=== PATIENT | female | born 1945 | race Caucasian/White ===

== ENCOUNTER 2019-09-28 14:33 | Emergency (ER) | payer MEDICARE, OTHER, SELFPAY ==
[2019-09-28 14:35] VITALS: BP 129/66; PULSE 73; RESP 18; TEMP 36.4; O2SAT 99; BMI 24.4
--- NOTE | 2019-09-28 14:39 | ED.GENADULT ---
HPI - General Adult General Chief complaint: Extremity Injury, Lower Stated complaint: L Hip Fracture s/p trip and fall Time Seen by Provider: 09/28/19 14:39 Source: patient Mode of arrival: EMS Limitations: no limitations History of Present Illness HPI narrative: 73-year-old female here for evaluation of left hip pain. Patient states she tripped over rug. Landed on her left knee and then on her left hip. Did not hit her head. No loss of conscious. Not on anticoagulation. No prior injury to left hip. Unable to walk on it since the event. Did receive fentanyl by EMS EN route. Related Data Home Medications Medication Instructions Recorded Confirmed amitriptyline 50 mg BID 09/28/19 09/28/19 levothyroxine 150 mcg DAILY 09/28/19 09/28/19 ofloxacin 1 drp BID 09/28/19 09/28/19 prednisolone acetate 1 drp BID 09/28/19 09/28/19 Allergies Allergy/AdvReac Type Severity Reaction Status Date / Time ciprofloxacin Allergy Abdominal Verified 09/28/19 15:05 Pain codeine Allergy ITCHING Verified 09/28/19 15:05 doxycycline Allergy ITCHING Verified 09/28/19 15:05 epinephrine Allergy Shakiness Verified 09/28/19 15:05 fenofibrate Allergy ITCHING Verified 09/28/19 15:05 lidocaine Allergy Shakiness Verified 09/28/19 15:05 oxycodone Allergy Hallucinati Verified 09/28/19 15:05 ng [id number] Reductase Allergy Headache Verified 09/28/19 15:05 Inhibitor Sulfa (Sulfonamide Allergy ITCHING Verified 09/28/19 15:05 Antibiotics) morphine AdvReac ITCHING Verified 09/28/19 15:05 Review of Systems Constitutional Constitutional: Denies headache(s) ENT Ears, Nose, Mouth, and Throat: Denies headache(s) Cardiovascular Cardiovascular: Denies chest pain and Denies dyspnea Respiratory Respiratory: Denies dyspnea Gastrointestinal Gastrointestinal: Denies abdominal pain Musculoskeletal Comments: Left hip pain Integumentary/Breasts Skin/Breast: Denies lesions and Denies rash Neurologic Neurologic: Denies behavioral changes and Denies headache(s) Psychiatric Psychiatric: Denies behavioral changes Hematologic/Lymphatic Hematologic/Lymphatic: Denies easy bleeding and Denies easy bruising Patient History Medical History Hypothyroid (Acute) Social History Smoking Status: Current every day smoker Exam Initial Vital Signs Initial Vital Signs: Vital Signs Temperature 97.6 F 09/28/19 14:35 Pulse Rate 73 09/28/19 14:35 Respiratory Rate 18 09/28/19 14:35 Blood Pressure 129/66 09/28/19 14:35 Pulse Oximetry 99 09/28/19 14:35 Const General: cooperative and well developed Limitations: mental status not altered [facility] Head: normal to inspection and normocephalic Resp Effort & Inspection: normal respiratory effort Auscultation: clear to auscultation bilaterally Cardio Rate: regular rate Rhythm: regular rhythm Back/Spine/Pelvis Cervical Spine: No cervical spinal tenderness Skin Lesions: no lesions Rashes: no rashes Neuro Other: Alert oriented x3. GCS 15. Sensation intact to light touch left lower extremity. Extrem Other: Left ankle left foot left knee unremarkable. Tenderness to palpation lateral aspect of left hip. Right hip unremarkable. No other orthopedic injuries found on exam Psych Appearance: grossly normal and well kempt Course Orders Ordered: ED Orders 09/28/19 14:25 Complete Blood Count AUTO DIFF Stat Comprehensive Metabolic Panel Stat Lipase Stat Type and Screen Stat 09/28/19 14:42 XR hip w pel if done LT 2V Stat Sodium Chloride (Normal Saline 0.9%) 1,000 mls @ 125 mls/hr IV CONT COLTEN Discontinued Medications Morphine Sulfate (Morphine) 4 mg IV NOW ONE Stop: 09/28/19 14:48 Last Admin: 09/28/19 14:57 Dose: 4 mg Documented by: NORM Vital Signs Vital signs: Vital Signs - 8 hr 09/28/19 14:35 09/28/19 15:00 09/28/19 16:05 Temperature 97.6 F 97.6 F Pulse Rate 73 73 84 Respiratory Rate 18 18 14 Blood Pressure 129/66 129/66 Blood Pressure [123/72] 123/72 Pulse Oximetry 99 99 98 Medical Decision Making Lab Data Lab results reviewed: Yes I reviewed the patient's lab results. Result diagrams: 09/28/19 14:25 09/28/19 14:25 Labs: Lab Results 09/28/19 09/28/19 09/28/19 Range/Units 14:25 14:25 14:25 WBC 6.2 (4.5-11.0) X10^3/uL RBC 4.34 (4.0-5.2) X10^6/uL Hgb 14.5 (12.0-16.0) g/dL Hct 42.3 (36-46) % MCV 97.4 (80-100) fL MCH 33.5 (26-34) PG MCHC 34.4 (30-36) % RDW 13.3 (11.6-14.8) % Plt Count 233 (150-400) X10^3/uL Neut % (Auto) 53.7 (50-75) % Lymph % (Auto) 35.3 (25-40) % [place] % (Auto) 8.1 (3-14) % Eos % (Auto) 2.3 (2-4) % Baso % (Auto) 0.6 (0-2) % Neut # (Auto) 3300 (3911-5148) /uL Lymph # (Auto) 2200 (4104-5554) /uL [place] # (Auto) 500 (0-900) /uL Eos # (Auto) 100 (0-450) /uL Baso # (Auto) 0 (0-100) /uL Sodium 134 L (137-145) mmol/L Potassium 4.3 (3.4-5.1) mmol/L Chloride 99 (98-107) mmol/L Carbon Dioxide 28 (22-32) mmol/L BUN 21 H (7-17) mg/dL Creatinine 0.80 (0.52-1.04) mg/dL Estimated GFR > 60.0 (>60) mL/min BUN/Creatinine Ratio 26.3 H (6-22) Glucose 133 H (80-110) mg/dL Calcium 9.9 (8.4-10.2) mg/dL Total Bilirubin 0.6 (0.2-1.3) mg/dL AST 27 (14-36) IU/L ALT 15 (<35) IU/L Alkaline Phosphatase 79 (38-126) U/L Total Protein 8.2 (6.3-8.2) g/dL Albumin 4.5 (3.5-5.0) g/dL Globulin 3.7 (1.7-4.1) g/dL Albumin/Globulin Ratio 1.2 (1.0-2.8) Lipase 91 (23-300) U/L Blood Type O Positive Antibody Screen Negative Imaging Data Extremity x-ray #1: Radiologist's Impression: [address] [address] XRay Report Signed Patient: Candi Juan EMR#: [id number] : 4Acct:[id number] Age/Sex: 73 / FDate of Service: 09/28/19 Loc: ED Accession Number: [id number] Procedure: XR hip w pel if done LT 2V Ordering Provider: Emile Graf D.O. PROCEDURE: XR HIP W PEL IF DONE LT 2V INDICATIONS: Fall. L hip pain w/external rotation. TECHNIQUE: AP pelvis with lateral view(s) of the left hip(s). COMPARISON: None. FINDINGS: Bones: There is a comminuted, moderately displaced intertrochanteric fracture of the left proximal femur. No dislocation can be seen. No fractures of the bones of the pelvis are detected. Age-appropriate bony degenerative changes are seen, including involving the lower lumbar spine. Soft tissues: The visualized bowel gas pattern is normal. No suspicious soft tissue calcifications. IMPRESSION: Intertrochanteric left proximal femur fracture. Dictated by: Janak Ragsdale M.D. on 09/28/2019 at 14:31 Approved by: Janak Ragsdale M.D. on 09/28/2019 at 14:33 MDM Narrative Medical decision making narrative: Mechanical fall. Left-sided intertrochanteric hip fracture. Pain medication provided. Labs provided. Patient requested transfer to [facility]. She states that she has ?bad memories ?with regard to [facility]. Discussed the case with Dr. Mauricio with Orthopedics who accepts the patient. He has that the medicine service accept the patient. Patient is stable for transfer. Dr. Mcdaniels boiling house oiler at [facility] accepts patient. Discharge Plan Departure Patient Disposition: [facility] Clinical Impression: Closed intertrochanteric fracture of left hip Qualifiers: Encounter type: initial encounter Fracture alignment: displaced Qualified Code(s): S72.142A - Displaced intertrochanteric fracture of left femur, initial encounter for closed fracture Prescriptions: No Action ofloxacin 0.3 % drops 1 drp BID RF: 0 amitriptyline 50 mg tablet 50 mg BID RF: 0 prednisolone acetate 1 % drops,suspension 1 drp BID RF: 0 levothyroxine 150 mcg tablet 150 mcg DAILY RF: 0 Referrals: Bakari Hook MD [Primary Care Provider] -
--- NOTE | 2019-09-28 14:42 | DI.RAD.S_ITS ---
PROCEDURE: XR HIP W PEL IF DONE LT 2V INDICATIONS: Fall. L hip pain w/external rotation. TECHNIQUE: AP pelvis with lateral view(s) of the left hip(s). COMPARISON: None. FINDINGS: Bones: There is a comminuted, moderately displaced intertrochanteric fracture of the left proximal femur. No dislocation can be seen. No fractures of the bones of the pelvis are detected. Age-appropriate bony degenerative changes are seen, including involving the lower lumbar spine. Soft tissues: The visualized bowel gas pattern is normal. No suspicious soft tissue calcifications. IMPRESSION: Intertrochanteric left proximal femur fracture. Dictated by: Janak Ragsdale M.D. on 09/28/2019 at 14:31 Approved by: Janak Ragsdale M.D. on 09/28/2019 at 14:33
--- NOTE | 2019-09-28 14:43 | PC.NURSE ---
cut patients pants, and evan plummer with pt permission. Removed 2 shirts and bra. Placed in bag at bedside. pt placed in gown and provided with warm blankets.
[2019-09-28 14:54] LABS: Add Manual Diff / Slide Review NO; Basophils Absolute Auto 0 /uL (0-100); Basophils Percent Auto 0.6 % (0-2); Eosinophils Absolute Auto 100 /uL (0-450); Eosinophils Percent Auto 2.3 % (2-4); Hematocrit 42.3 % (36-46); Hemoglobin 14.5 g/dL (12.0-16.0); Lymphocytes Absolute Auto 2200 /uL (1100-4500); Lymphocytes Percent Auto 35.3 % (25-40); Mean Corpuscular HGB Conc 34.4 % (30-36); Mean Corpuscular Hemoglobin 33.5 PG (26-34); Mean Corpuscular Volume 97.4 fL (80-100); Monocytes Absolute Auto 500 /uL (0-900); Monocytes Percent Auto 8.1 % (3-14); Neutrophils Absolute Auto 3300 /uL (1500-7000); Neutrophils Percent Auto 53.7 % (50-75); Platelet Count 233 X10^3/uL (150-400); Red Blood Cell Count 4.34 X10^6/uL (4.0-5.2); Red Cell Distribution Width 13.3 % (11.6-14.8); White Blood Cell Count 6.2 X10^3/uL (4.5-11.0)
[2019-09-28] MEDS: MORPHINE 4 MG/ML INJ IV ×3 (14:57→18:35)
[2019-09-28 15:00] VITALS: BP 129/66; PULSE 73; RESP 18; TEMP 36.4; O2SAT 99; BMI 24.4
[2019-09-28 15:04] LABS: Alanine Aminotransferase 15 IU/L (<35); Albumin 4.5 g/dL (3.5-5.0); Albumin Globulin Ratio 1.2 (1.0-2.8); Alkaline Phosphatase 79 U/L (38-126); Aspartate Aminotransferase 27 IU/L (14-36); BUN Creatinine Ratio 26.3 (6-22); Bilirubin Total 0.6 mg/dL (0.2-1.3); Blood Urea Nitrogen 21 mg/dL (7-17); Calcium 9.9 mg/dL (8.4-10.2); Carbon Dioxide 28 mmol/L (22-32); Chloride 99 mmol/L (98-107); Estimated Glomerular Filt Rate > 60.0 mL/min (>60); Globulin 3.7 g/dL (1.7-4.1); Glucose 133 mg/dL (80-110); HEMOLYSIS 25 (0-50); Lipase 91 U/L (23-300); Potassium 4.3 mmol/L (3.4-5.1); Sodium 134 mmol/L (137-145); Total Protein 8.2 g/dL (6.3-8.2)
[2019-09-28 16:05] VITALS: BP 123/72; PULSE 84; RESP 14; O2SAT 98
--- NOTE | 2019-09-28 16:36 | PC.NURSE ---
Placed by DULCE Hooper.
[2019-09-28] MEDS: SODIUM CHLORIDE 0.9% 1,000 ML 125 ML IV (16:56)
[2019-09-28 17:08] VITALS: BP 122/62; PULSE 87; O2SAT 96
[2019-09-28 18:12] VITALS: BP 125/67; PULSE 85; O2SAT 98
== END 2019-09-28 18:51 | disposition short-term general hospital (02) ==
PROVIDERS: Emergency Provider Emergency Medicine; Family Provider Family Medicine; PCP Family Medicine
DX: S72.142A Displaced intertrochanteric fracture of left femur, initial encounter for closed fracture (principal); W01.0XXA Fall on same level from slipping, tripping and stumbling without subsequent striking against object, initial encounter
CPT/HCPCS: 36415; 51701; 73502; 80053; 83690; 85025; 86850; 86900; 86901; 96374; 96376; 99284; 99285; J2270

== ENCOUNTER → 2019-10-05 13:16 | Outpatient (CLI) | payer MEDICARE, OTHER, SELFPAY | PROVIDERS: Family Provider Family Medicine; PCP Family Medicine; Referring Provider Nurse Practitioner; Visit Provider Nurse Practitioner | DX: M79.671 Pain in right foot (principal); Z53.9 Procedure and treatment not carried out, unspecified reason ==

== ENCOUNTER → 2019-10-07 10:21 | Outpatient (CLI) | payer MEDICARE, OTHER, SELFPAY ==
--- NOTE | 2019-10-07 | DI.RAD.S_ITS ---
PROCEDURE: XR FOOT LT MIN 3V INDICATIONS: RIGHT FOOT PAIN TECHNIQUE: 3 views of the foot were acquired. COMPARISON: None. FINDINGS: Bones: No fractures or dislocations. No suspicious bony lesions. Prominent plantar calcaneal spur. Diffuse hindfoot and midfoot degenerative sclerosis and spurring. There is also interphalangeal and first MTP joint degeneration. Soft tissues: No tibiotalar joint effusion. Achilles tendon appears normal. IMPRESSION: Diffuse degenerative changes as above. This makes evaluation suboptimal for fractures although no gross radiographically identified fracture seen. If the patient's pain or other symptoms persist, consider further evaluation with MRI Prominent plantar calcaneal spur Dictated by: Azael Dickey M.D. on 10/07/2019 at 11:41 Approved by: Azael Dickey M.D. on 10/07/2019 at 11:49
== END ==
PROVIDERS: Family Provider Family Medicine; PCP Family Medicine; Referring Provider Nurse Practitioner; Visit Provider Nurse Practitioner
DX: M79.671 Pain in right foot (principal); M77.31 Calcaneal spur, right foot; M19.071 Primary osteoarthritis, right ankle and foot
CPT/HCPCS: 73630

== ENCOUNTER 2019-11-05 09:57 | Emergency (ER) | payer MEDICARE, OTHER, SELFPAY ==
[2019-11-05 10:10] VITALS: BP 110/56; PULSE 90; RESP 13; TEMP 35.8; O2SAT 98
--- NOTE | 2019-11-05 11:33 | DI.US.S_ITS ---
PROCEDURE: US PERIPH VENOUS LOW EXTREM LT INDICATIONS: LLE PAIN, S/P HIP SURGERY 09/29/19 TECHNIQUE: Real-time imaging, as well as color and pulse Doppler interrogation, were performed of the lower extremity deep veins from the inguinal ligament to the popliteal fossa. COMPARISON: None. FINDINGS: The common femoral, femoral and popliteal veins are normally compressible, and free of intraluminal thrombus. Color and pulse Doppler demonstrate normal phasic intraluminal flow. There is normal augmentation response to distal compression maneuver. There is superficial thrombus present in the left short saphenous vein at the level of the calf IMPRESSION: 1. No evidence of DVT, left lower extremity 2. Focal short saphenous vein clot in the region of the calf. Dictated by: Ronnie Ramirez M.D. on 11/05/2019 at 12:31 Approved by: Ronnie Ramirez M.D. on 11/05/2019 at 12:36
--- NOTE | 2019-11-05 12:08 | ED.LOWEXIN ---
HPI - Extremity Injury (Lower) <ALBERTO Palencia - Last Filed: 11/05/19 13:09> General Chief Complaint: Extremity Injury, Lower Stated Complaint: pain in left leg/ankle,hip surgery 09/29 Time Seen by Provider: 11/05/19 10:31 Source: patient Mode of arrival: Wheelchair Limitations: no limitations History of Present Illness HPI Narrative: This is a 74-year-old female, smoker, who presents to ED with her son with chief complain of left lower extremity pain. Patient had fracture of left hip on September 28 and had a surgery on September 29 as [facility] by Dr. Mauricio. Patient reports the surgery went well and and she [facility] and now she has been at home for a week. Patient noticed dull aches on her thigh about a week ago which has been worse for last 2 days. Patient reports pain is below her left knee down to her ankle increases with movements. Patient had follow-up with Dr. Mauricio 6 days ago and they had x-ray test done on left knee and was told negative and her pain is likely due to part of healing. Patient denies fever, chills, nausea or vomiting. Patient denies surgical site redness, warmth, swelling. Patient reports decreased sensation on left lower leg below knee. Patient denies calf pain mostly her pain is located in anterior leg. Denies chest pain, dyspnea. Patient has been ambulating with a walker and is no longer in bed rest. Patient has a follow-up appointment with Dr. Mauricio in 3 days at the office, she was suggested to going to ED or walk-in clinic for an evaluation when she call the clinic today. Related Data Home Medications Medication Instructions Recorded Confirmed levothyroxine 150 mcg PO DAILY 09/28/19 11/05/19 ofloxacin 1 drp BID 09/28/19 09/28/19 prednisolone acetate 1 drp BID 09/28/19 09/28/19 amitriptyline 11/05/19 Allergies Allergy/AdvReac Type Severity Reaction Status Date / Time ciprofloxacin Allergy Abdominal Verified 09/28/19 15:05 Pain codeine Allergy ITCHING Verified 09/28/19 15:05 doxycycline Allergy ITCHING Verified 09/28/19 15:05 epinephrine Allergy Shakiness Verified 09/28/19 15:05 fenofibrate Allergy ITCHING Verified 09/28/19 15:05 lidocaine Allergy Shakiness Verified 09/28/19 15:05 oxycodone Allergy Hallucinati Verified 09/28/19 15:05 ng [id number] Reductase Allergy Headache Verified 09/28/19 15:05 Inhibitor Sulfa (Sulfonamide Allergy ITCHING Verified 09/28/19 15:05 Antibiotics) morphine AdvReac ITCHING Verified 09/28/19 15:05 Review of Systems <ALBERTO Palencia - Last Filed: 11/05/19 13:09> Review of Systems Narrative: General: Denies fever, chills, fatigue, malaise, sweats. HEENT: Denies sinus pain, ear pain, sore throat, difficulty swallowing, dizziness. Respiratory: Denies dyspnea, cough, wheezing, hemoptysis, sputum. Cardiovascular: Denies chest pain, palpitations, orthopnea, edema. Gastrointestinal: Denies nausea, vomiting, abdominal pain, diarrhea, constipation, melena. : Denies dysuria, frequency, incontinence, hematuria, urinary retention. Musculoskeletal: See HPI Skin: Denies rash, skin lesions, or other. Neurologic: Denies weakness, headache, numbness, change in speech, confusion, seizures, incoordination. Psychiatric: No concerning psychosocial issues. 12-point review of systems is negative except for those stated above. Patient History <ALBERTO Palencia - Last Filed: 11/05/19 13:09> Medical History Hip fracture, left (Acute) Hypothyroid (Acute) Surgical History History of appendectomy (Acute) History of bladder suspension procedure (Acute) History of carpal tunnel release (Acute) History of cataract surgery (Acute) History of knee replacement (Acute) History of tonsillectomy (Acute) Social History Smoking Status: Current every day smoker Smoking Status: Current every day smoker tobacco type: cigarettes alcohol intake frequency: 3 or more drinks per day Alcohol type: wine Substance Use Type: does not use Exam <ALBERTO Palencia - Last Filed: 11/05/19 13:09> Narrative Exam Narrative: GEN: Alert, oriented x 3, well appearing and nourished, and in no acute distress. Head: Normal cephalic, atraumatic. No scalp or temporal tenderness, palpable mass or rash. EYES: Pupils are equal, round, and reactive to light and accommodation. Extraocular muscles are intact bilaterally. There is no subconjunctival hemorrhage, exudate and sclera non-icteric. ENT: Bilateral auditory canals and tympanic membranes clear. Hearing grossly intact. Nose without bleeding, purulent discharge or deviation. Facial sinuses nontender to palpate. Mucous membrane moist, no mucosal lesion. Throat without erythema, tonsillar hypertrophy or exudate. Uvula in midline, airway patent. Neck: Trachea in midline. No JVD, non-tender without lymphadenopathy. No masses or thyroid megaly. Supple, non-tender and no meningeal signs. CARDIAC: Normal regular rate and rhythm without murmurs, gallops, or rubs. No chest wall tenderness. No peripheral edema, cyanosis or pallor. Capillary refill is less than 2 seconds. RESPIRATORY: Lungs are clear to auscultate bilaterally. Occasional moist cough and reports from smoking and no changes. No wheezes, rales, or rhonchi. No stridor, respiratory distress, increase work of breathing, or accessary muscle used. ABD: Abdomen soft, nontender and non-distended. No guarding or rebound tenderness to palpate. Bowel sounds are normal in all 4 quadrants. There is no palpable masses or organomegaly. SKIN: Warm, dry, normal color for patient. No erythema, lesions or rash over visible areas. BACK: Nontender without deformity or crepitance. No flank tenderness. NEUROLOGICAL: Alert and oriented to place, time and person. Sensation and motor function intact bilaterally. No facial droops, dysphasia. PSYCHIATRIC: Good judgement and reason, without hallucinations, abnormal affect or abnormal behaviors during the examination. Patient is not suicidal. Initial Vital Signs Initial Vital Signs: Vital Signs Temperature 96.4 F L 11/05/19 10:10 Pulse Rate 90 11/05/19 10:10 Respiratory Rate 13 11/05/19 10:10 Blood Pressure 110/56 L 11/05/19 10:10 Pulse Oximetry 98 11/05/19 10:10 Extrem Right lower extremity: knee (well healed surgical incision) Left lower extremity: edema (very mild swelling to LLE) Details: non-pitting, hip/thigh (well healed surgical incision in L lateral hip and mid thigh) Details: normal to inspection and other (no erythema); no tenderness, no swelling, no lacerations, no ecchymosis, no crepitus, no deformity and no unusual warmth, knee (well healed surgical incision) Details: no tenderness, no swelling, no ecchymosis, no crepitus, no deformity and no unusual warmth, lower leg Details: tenderness (anterior lower leg), localized swelling Location: of the distal lower leg (mild swelling to lower calf and anteior estevez) and ecchymosis; no erythema, no lacerations and no crepitus, ankle Details: normal to inspection; no tenderness, no swelling, no pitting edema and ROM abnormal and foot Details: toes with normal ROM, vascular exam Details: dorsalis pedis pulse present, tendon exam Details: active flexion normal and active flexion abnormal and other (negative Rianna's sign); no tenderness Other: slightly decreased sensation to light touch in left lower leg in lateral and medial aspect from knee to lower calf <Neelam Licea MD - Last Filed: 11/05/19 14:33> Initial Vital Signs Initial Vital Signs: Vital Signs Temperature 96.4 F L 11/05/19 10:10 Pulse Rate 90 11/05/19 10:10 Respiratory Rate 13 11/05/19 10:10 Blood Pressure 110/56 L 11/05/19 10:10 Pulse Oximetry 98 11/05/19 10:10 Scores <ALBERTO Palencia - Last Filed: 11/05/19 13:09> GCS Gema coma scale eye opening: Spontaneous Gema coma scale verbal response: Orientated [place] coma scale motor response: Obey commands Gema coma scale total score: 15 Wells' Criteria for DVT Active Cancer (Treatment within 6 months): No Bedridden recently >3 days or major surgery within 4 weeks: No Calf Swelling >3cm compared to other leg: No Collateral (nonvericose) superficial veins present: No Entire leg swollen: No Localized tenderness along the deep vein system: Yes Pitting edema, confined to symtomatic leg: No Paralysis, paresis, or recent plaster immobilization of ext: Yes Previously documented DVT: No Alternative dx to DVT as likely or more likely: No Wells' criteria for DVT: 2 Course <ALBERTO Palencia - Last Filed: 11/05/19 13:09> Orders Ordered: ED Orders 11/05/19 11:33 US periph venous low extrem lt Stat Vital Signs Vital signs: Vital Signs - 8 hr 11/05/19 10:10 11/05/19 13:07 Temperature 96.4 F L Pulse Rate 90 83 Respiratory Rate 13 16 Blood Pressure 110/56 L Blood Pressure [Left Arm] 145/68 H Pulse Oximetry 98 93 <Neelam Licea MD - Last Filed: 11/05/19 14:33> Orders Ordered: ED Orders 11/05/19 11:33 US perip venous low extrem lt Stat Vital Signs Vital signs: Vital Signs - 8 hr 11/05/19 10:10 11/05/19 13:07 Temperature 96.4 F L Pulse Rate 90 83 Respiratory Rate 13 16 Blood Pressure 110/56 L Blood Pressure [Left Arm] 145/68 H Pulse Oximetry 98 93 MDM - Extremity Injury (Lower) <ALBERTO Palencia - Last Filed: 11/05/19 13:09> Differential Diagnosis Differential diagnosis: Likely other (DVT, superficial vein thrombosis, fracture, musculoskeletal strain) Medical Records Attestation: I reviewed the patient's medical records. Imaging Data US - DVT: Radiologist's Impression: [address] [id number] Ultrasound Report Signed Patient: Candi Juan EMR#: [id number] : 4Acct:[id number] Age/Sex: 74 / FDate of Service: 11/05/19 Loc: ED Accession Number: [id number] Procedure: US periph venous low extrem lt Ordering Provider: Umberto Murray PROCEDURE: US PERIPH VENOUS LOW EXTREM LT INDICATIONS: LLE PAIN, S/P HIP SURGERY 09/29/19 TECHNIQUE: Real-time imaging, as well as color and pulse Doppler interrogation, were performed of the lower extremity deep veins from the inguinal ligament to the popliteal fossa. COMPARISON: None. FINDINGS: The common femoral, femoral and popliteal veins are normally compressible, and free of intraluminal thrombus. Color and pulse Doppler demonstrate normal phasic intraluminal flow. There is normal augmentation response to distal compression maneuver. There is superficial thrombus present in the left short saphenous vein at the level of the calf IMPRESSION: 1. No evidence of DVT, left lower extremity 2. Focal short saphenous vein clot in the region of the calf. Dictated by: Ronnie Ramirez M.D. on 11/05/2019 at 12:31 Approved by: Ronnie Ramirez M.D. on 11/05/2019 at 12:36 MDM Narrative Medical decision making narrative: This is a 74 year female who presents to ED with left lower leg pain. Patient recently had fracture on her left hip and surgical procedure done on 09/29/19 at [facility] by Dr. Mauricio. Patient reports discomfort in anterior left lower leg with increasing numbness. Patient was followed up with Dr. Mauricio about a week ago and has another follow-up appointment a week. Positive pedal pulse distally. Patient is able to flex and extend left foot and wiggle her toes without difficulty. Decrease sensation to light touch on left lower leg from knee to lower calf. Left calf is compressible. There is mild ecchymosis on left lower leg without signs of infection in surgical sites. Patient had left knee x-ray taken at Dr. Mauricio's office last week with negative results. Ultrasound test was obtained and indicates superficial saphenous vein clot in the calf region. Patient advised to use heat, continue with NSAIDS, compression stocking and to elevate affected leg at rest and be active. Return precautions were discussed with the patient and patient advised to follow-up with PCP and Dr. Mauricio as scheduled. Patient verbalized understanding and in agreement with the treatment plan. Discharge Plan Departure Patient Disposition: Home Clinical Impression: Status post fracture of hip Saphenous vein clot Qualifiers: Laterality: left Qualified Code(s): I82.812 - Embolism and thrombosis of superficial veins of left lower extremity Discharge Date/Time: 11/05/19 13:14 Instructions: DI for Superficial Thrombophlebitis Activity Restrictions/Additional Instructions: You have been diagnosed with [ Superficial thrombus in the left short saphenous vein at the level of the calf. No evidence of DVT seen per ultrasound. Decreased sensation is likely from the surgery and part of healing process.]. What to do: *Take your medications as directed. Please use NSAID such as ibuprofen, motrin, naproxen. Ibuprofen 400 mg 3 to 4 times a day as needed for pain with food. Elevated the affected leg on chest level while your at rest. You can use warm pack on affected side frequently. You can use compression stocking on affected leg. Please be active and ambulate as much as you can. You can add Tylenol as needed if ibuprofen is not sufficient for pain management. *Follow up with your primary care provider in 2-3 days, call for an appointment and please follow-up with Dr. Mauricio as scheduled on Monday. Let them know you were seen in the ED and that we asked you to be seen in follow up. *Return to ED if you have any new, worsening, or concerning symptoms, such as [increasing swelling, redness or warmth to left lower leg, calf pain, chest pain, breathing difficulty, unable to tolerate fluids or any acute concerns]. Prescriptions: No Action amitriptyline 100 mg tablet RF: 0 ofloxacin 0.3 % drops 1 drp BID RF: 0 prednisolone acetate 1 % drops,suspension 1 drp BID RF: 0 levothyroxine 150 mcg tablet 150 mcg PO DAILY RF: 0 Referrals: Piyush Mauricio DO [Non-Staff] - Bakari Hook MD [Primary Care Provider] - <Neelam Licea MD - Last Filed: 11/05/19 14:33> Sign Out Provider Sign Out Attestation: I was immediately available in the department for consultation throughout this patient's visit. I agree with documentation as above. Neelam Licea MD
[2019-11-05 13:07] VITALS: BP 145/68; PULSE 83; RESP 16; O2SAT 93
== END 2019-11-05 13:14 | disposition home or self-care (01) ==
PROVIDERS: Emergency Provider Nurse Practitioner Family; Family Provider Family Medicine; PCP Family Medicine
DX: Z98.890 Other specified postprocedural states (principal); I82.812 Embolism and thrombosis of superficial veins of left lower extremity
CPT/HCPCS: 93971; 99281; 99283

== ENCOUNTER 2019-11-14 13:00 | Outpatient (RCR) | payer MEDICARE, OTHER, SELFPAY ==
--- NOTE | 2019-11-06 14:59 | PT.OIE ---
Current Diagnoses Other muscle spasm (11/06/19) Displaced intertrochanteric fracture of left femur, initial encounter for closed fracture (11/06/19) Past Medical History (Last Reviewed 11/05/19 @ 12:15 by ALBERTO Palencia) Hip fracture, left (Acute) Hypothyroid (Acute) Past Surgical History (Last Reviewed 11/05/19 @ 12:15 by ALBERTO Palencia) History of appendectomy (Acute) History of bladder suspension procedure (Acute) History of carpal tunnel release (Acute) History of cataract surgery (Acute) History of knee replacement (Acute) History of tonsillectomy (Acute) Visit Care Team Role Provider Type Bakari Hook MD Family Provider Non-Staff Primary Care Provider Specialty: Medical Address: [address] [place] [address], [id number] Email: ALBERTO Merino Attending Provider Non-Staff Referring Provider Specialty: Nursing Address: [address] [place] [address], [id number] Email: Physical Therapy Initial Evaluation PT-OP-A Visit Information Start: 11/06/19 07:22 Freq: Status: Active Protocol: Document 11/06/19 09:45 MB (Rec: 11/06/19 11:23 MB [id number]) Out-Patient Physical Therapy Visit Information Visit Information Visit Type Initial Evaluation Visit Note Medicare, unlimited visits Visit Start Time 09:45 Visit Stop Time 11:00 Total Visit Minutes 75 Visit Number 1 Number of LAPEL BASTER Visits 0 Evaluation Information Evaluation Date 11/06/19 Precautions Precautions Fall risk PT-OP-B Current Condition Start: 11/06/19 07:22 Freq: Status: Active Protocol: Document 11/06/19 09:45 MB (Rec: 11/06/19 11:23 MB [id number]) Current Condition History of Current Condition Onset Date 09/28/2019 Current Complaints Left anterior knee pain that moves to her left ankle, numbness History of Current Condition Pt tripped on her rug 09/28/2019 , landing on left knee and then left hip. She underwent ORIF at [facility] on 09/29. Her son, Shayne, and she report that there was a cardiac concern about a murmur but then they proceeded with surgery. Pt denies hip precautions and WB precautions . 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 After surgery, pt d/cd to SNF for 25 days. She just returned home on 10/27/2019 and has been less active since returning home. She lives alone, has 6 steps to enter with right rail ascend, has a RW, elevated commode and tub bench and was I immediately upon d/t home. She has had progressively worsening left leg pain, focused around the anterior knee, estevez and ankle with reports of numbness. Her pain reaches 10/10 and she went to the ED yesterday. US LLE was negative for DVT and positive for superficial saphenous thrombophlebitis. Pt denies falls since 09/28/2019 . She reports that icing, elevation, heat and ibuprofen help her pain. She has also performed gentle LE exercises that help her pain. PMH on SNF d/c note includes atherosclerotic heart disease (pt states she is not aware of this), hyperglycemia, hypothyroidism, anemia, ongoing smoking and alcohol intake, cardiac murmur, L BBB, hyperlipidemia Prior Treatments and Tests See above, recent SNF adm post -op and pt states that she could ascend and descend steps and get in and OOB I. Treatment Goals Patient/Caregiver Goals To decrease pain and improve mobility Prior Functional Status Baseline Function- ADL's Independent Baseline Function- Mobility Independent Baseline Function- Gait Mod I with RW Current Functional Impairments (Reported) Functional Limitations- ADL's Pt requires min A to get onto and off of plinth, guards her left leg with right foot Functional Limitations- Mobility/Gait Antalgic gait with decreased step-length and foot clearance , increased step-to gait, heavy UE support on RW Personal Factors Other Personal Factors That May Effect Inability to drive herself to Therapy/Recovery appointments, inconsistent help, ongoing smoking, ? how much alcohol intake (sonShayne , suspects more that pt reports), ? non-caffeinated fluid intake, self-limiting mobility PT-OP-C Subjective Start: 11/06/19 07:22 Freq: Status: Active Protocol: Document 11/06/19 09:45 MB (Rec: 11/06/19 11:23 MB [id number]) OP-PT Subjective Patient Comments Patient Comments See history of current condition Patient Reported Progress Worse Patient Questionnaires Lower Extremity Functional Scale LEFS Score 31 LEFS Impairment 60 to 79% Impaired (Score 17- 31) OP-PT Pain Assessment Comments Pain Comments Pt has increased pain with bed mobility, walking, passive and active left knee flexion in hook lying. PT-OP-G Mobility & Gait Start: 11/06/19 07:22 Freq: Status: Active Protocol: Document 11/06/19 09:45 MB (Rec: 11/06/19 11:23 MB [id number]) OP Mobility Evaluation Bed Mobility Rolling Min A, support left leg Supine to and from Sit Min A, pt holds onto PT's arm OP Gait Assessment Comments Gait Comments See gait comments above PT-OP-K Range of Motion Start: 11/06/19 07:22 Freq: Status: Active Protocol: Document 11/06/19 09:45 MB (Rec: 11/06/19 14:58 MB [id number]) Knee Goniometric Range of Motion Knee ROM Limitations Comments Pt does not tolerate formal ROM testing, cannot reach full extension with left knee and asks for support. Pt presents with pain with active flexion to 30 deg and passive flexion 70 deg left knee. PT-OP-M Strength Start: 11/06/19 07:22 Freq: Status: Active Protocol: Document 11/06/19 09:45 MB (Rec: 11/06/19 14:58 MB [id number]) Hip Strength Hip Manual Muscle Testing Left Comments NT d/t pt fear of pain Right Flexion (L2) 4 Good Abduction 3+ Fair+ Knee Strength Knee Manual Muscle Testing Left Comments NT d/t fear of pain Right Flexion (S2) 4 Good Extension (L3) 5 Normal Ankle/Foot Strength Ankle and Foot Manual Muscle Testing Left Dorsiflexion (L4) 5 Normal Inversion 5 Normal Eversion (S1) 5 Normal Right Dorsiflexion (L4) 5 Normal Inversion 5 Normal Eversion (S1) 5 Normal Toe Strength Toe Manual Muscle Testing Left Great Toe Comments 4/5 Right Great Toe Comments 4/5 PT-OP-Q Treatments Start: 11/06/19 07:22 Freq: Status: Active Protocol: Document 11/06/19 09:45 MB (Rec: 11/06/19 14:58 MB [id number]) Self-Care/Home Management Treatment Education Other Education Ed pt in use of elevation, ice , compression, PT findings and recommendations and plan. Ed about Counterstrain, provided handout. PT answers questions of pt and son, many questions about activity recommendations and PT encoruages pt to get up every 30 minutes at home and walk in house, perform leg elevation, ice, AP, GS, QS, HS at least 3x/day, increase non-caffeinated fluid intake PT-OP-T Assessment and Plan Start: 11/06/19 07:22 Freq: Status: Active Protocol: Document 11/06/19 09:45 MB (Rec: 11/06/19 11:23 MB [id number]) Physical Therapy Assessment Rehab Potential Rehabilitation Potential Fair Evaluation Complexity Number of Personal Factors/Comorbidities 1-2 Number of Body Systems Impaired 3 Clinical Presentation at Evaluation Evolving Impairments Impairments Activity Tolerance,Balance, Edema,Functional Activities, Functional Mobility,Gait, Integument,Pain,Posture,ROM, Sensation,Soft Tissue Mobility ,Strength,Transfers Other Impairments Personal factors: trouble getting transportation, self- limiting activity, ? alcohol intake; body systems affected include integumentary, musculoskeletal, cardiac. Clinical presentation evolving Assessment Summary Assessment Pt is a 74 y/o female presenting with reports of severe left leg pain that is worse in her left knee and down to ankle. She presents with edema around her left knee but does not have change in temperature, erythema or edema in her ankle or lower leg. She has faint light green to yellowish bruise in her medial left LE, knee and medial thigh. She does not have pain with PT providing pressure through tibia. She has one area of tenderness over distal femur and she thinks she has a pin there. She has a protruberance near her left pubic ramus that is not anatomically symmetrical on the left. She does not have significant pain with active and passive left ankle ROM and her strength is normal in her ankle. While her left hip PROM is limited, it is not painful to passive movement, with PT supporting the left knee. She has severe pain with passive left knee flexion and with active motion as well. Active ROM pain starts at 30 deg flexion and passive at 70 deg flexion. PT reviews x-ray of left knee performed at surgeon's office and it reports no anatomical problems with the knee. The IM shameka is not fully visualized. DVT ruled out in the ED yesterday. Pt reports paresthesias in her left estevez.Pt presents with decreased LLE WB with gait with RW and gait is antalgic in pattern. She does not fully extend her left knee in supine or with gait and tends to guard her left leg with her right foot when supine. She asks for pillow support. Pt will benefit from PT for range , flexibility, strengthening and balance as she can tolerate. She does not tolerate balance testing or MMT today. Son, Shayne, is concerned that pt has not been moving a lot since she returned home from the SNF and that she resumed smoking and alcohol consumption. Pt also reports decreased mobility since returning home. Since she denies fall, injury, hearing a change in her leg with a position, PT favors decreased mobility as largest cause of pain, inflammation and edema. Pt responds well to ice and elevation after eval and PT provides extensive education to pt and son as well as Tubagrip for compression. PT prognosis is fair to guarded given self- limiting behaviors and pain. Physical Therapy Plan Frequency and Duration Frequency of Treatment 2x/Week Duration of Treatment 8 weeks Plan of Care Start Date 11/06/19 Plan of Care End Date 01/06/20 Therapeutic Interventions Therapeutic Interventions Aquatic Therapy,Balance Training,Canalithic Repositioning,Gait Training, Home Exercise Program,Joint Mobilizations,Manual Therapy, Neuromuscular Re-education, Patient/Caregiver Education, Self-Care/Home Management, Sensory Integration,Soft Tissue Mobilization,Taping, Therapeutic Activities, Therapeutic Exercises Modalities Cold Pack/Ice Massage,Electric Stimulation,Hot Packs, Ultrasound Other Therapeutic Interventions LTT Other Referrals/Consults Referrals/Consults Recommended PCP to follow-up post injury, surgery, SNF stay and to address cardiac history per notes Next Visit Focus/Plan Next Note Type Treatment Note Next Visit Plan Assess gait further, consider Counterstrain
--- NOTE | 2019-11-12 10:25 | PT.OTN ---
Current Diagnoses Other muscle spasm (11/12/19) Displaced intertrochanteric fracture of left femur, initial encounter for closed fracture (11/12/19) Physical Therapy Treatment Note PT-OP-A Visit Information Start: 11/06/19 07:22 Freq: Status: Active Protocol: Document 11/12/19 08:15 MB (Rec: 11/12/19 08:39 MB [id number]) Out-Patient Physical Therapy Visit Information Visit Information Visit Type Treatment Note Visit Note Medicare, unlimited visits Visit Start Time 08:15 Visit Stop Time 09:00 Total Visit Minutes 45 Visit Number 2 Number of INFECTION PREVENTION COORDINATOR Visits 0 Precautions Precautions Fall risk PT-OP-B Current Condition Start: 11/06/19 07:22 Freq: Status: Active Protocol: Document 11/06/19 09:45 MB (Rec: 11/06/19 11:23 MB [id number]) Current Condition History of Current Condition Onset Date 09/28/2019 Current Complaints Left anterior knee pain that moves to her left ankle, numbness History of Current Condition Pt tripped on her rug 09/28/2019 , landing on left knee and then left hip. She underwent ORIF at [facility] on 09/29. Her son, Shayne, and she report that there was a cardiac concern about a murmur but then they proceeded with surgery. Pt denies hip precautions and WB precautions . 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 After surgery, pt d/cd to SNF for 25 days. She just returned home on 10/27/2019 and has been less active since returning home. She lives alone, has 6 steps to enter with right rail ascend, has a RW, elevated commode and tub bench and was I immediately upon d/t home. She has had progressively worsening left leg pain, focused around the anterior knee, estevez and ankle with reports of numbness. Her pain reaches 10/10 and she went to the ED yesterday. US LLE was negative for DVT and positive for superficial saphenous thrombophlebitis. Pt denies falls since 09/28/2019 . She reports that icing, elevation, heat and ibuprofen help her pain. She has also performed gentle LE exercises that help her pain. PMH on SNF d/c note includes atherosclerotic heart disease (pt states she is not aware of this), hyperglycemia, hypothyroidism, anemia, ongoing smoking and alcohol intake, cardiac murmur, L BBB, hyperlipidemia Prior Treatments and Tests See above, recent SNF adm post -op and pt states that she could ascend and descend steps and get in and OOB I. Treatment Goals Patient/Caregiver Goals To decrease pain and improve mobility Prior Functional Status Baseline Function- ADL's Independent Baseline Function- Mobility Independent Baseline Function- Gait Mod I with RW Current Functional Impairments (Reported) Functional Limitations- ADL's Pt requires min A to get onto and off of plinth, guards her left leg with right foot Functional Limitations- Mobility/Gait Antalgic gait with decreased step-length and foot clearance , increased step-to gait, heavy UE support on RW Personal Factors Other Personal Factors That May Effect Inability to drive herself to Therapy/Recovery appointments, inconsistent help, ongoing smoking, ? how much alcohol intake (son, Shayne , suspects more that pt reports), ? non-caffeinated fluid intake, self-limiting mobility PT-OP-C Subjective Start: 11/06/19 07:22 Freq: Status: Active Protocol: Document 11/12/19 08:15 MB (Rec: 11/12/19 08:39 MB [id number]) OP-PT Subjective Patient Comments Patient Comments Pt states that she is doing much better. She is getting up every 15 minutes. PT-OP-G Mobility & Gait Start: 11/06/19 07:22 Freq: Status: Active Protocol: Document 11/06/19 09:45 MB (Rec: 11/06/19 11:23 MB [id number]) OP Mobility Evaluation Bed Mobility Rolling Min A, support left leg Supine to and from Sit Min A, pt holds onto PT's arm OP Gait Assessment Comments Gait Comments See gait comments above PT-OP-K Range of Motion Start: 11/06/19 07:22 Freq: Status: Active Protocol: Document 11/06/19 09:45 MB (Rec: 11/06/19 14:58 MB [id number]) Knee Goniometric Range of Motion Knee ROM Limitations Comments Pt does not tolerate formal ROM testing, cannot reach full extension with left knee and asks for support. Pt presents with pain with active flexion to 30 deg and passive flexion 70 deg left knee. PT-OP-M Strength Start: 11/06/19 07:22 Freq: Status: Active Protocol: Document 11/06/19 09:45 MB (Rec: 11/06/19 14:58 MB [id number]) Hip Strength Hip Manual Muscle Testing Left Comments NT d/t pt fear of pain Right Flexion (L2) 4 Good Abduction 3+ Fair+ Knee Strength Knee Manual Muscle Testing Left Comments NT d/t fear of pain Right Flexion (S2) 4 Good Extension (L3) 5 Normal Ankle/Foot Strength Ankle and Foot Manual Muscle Testing Left Dorsiflexion (L4) 5 Normal Inversion 5 Normal Eversion (S1) 5 Normal Right Dorsiflexion (L4) 5 Normal Inversion 5 Normal Eversion (S1) 5 Normal Toe Strength Toe Manual Muscle Testing Left Great Toe Comments 4/5 Right Great Toe Comments 4/5 PT-OP-Q Treatments Start: 11/06/19 07:22 Freq: Status: Active Protocol: Document 11/12/19 08:15 MB (Rec: 11/12/19 08:39 MB [id number]) Cardio Equipment Recumbent Elliptical (Augmate) Duration (Minutes) 9 Resistance 1 Therapeutic Exercises Supine Exercises 1 Comments QS, GS, HS, hip abduction (if able), prolonged leg straightening stretch Sitting Exercises Heel slide Comments Perform to improve range perform getting up Gait Training Gait Activity Gait training with RW and SPC right hand Comments Focus on one foot past the other with walker and cane. Cane raised 1 and her gait is better. 50'x3 Self-Care/Home Management Treatment Education Other Education Ed pt on con't to ice with leg straight. Ed pt in benefits of elevation with knee straight to help improve left knee extension. Pt states that she cannot tolerate Tubagrip, even if it was plumbing designer and she does not have tights. PT-OP-T Assessment and Plan Start: 11/06/19 07:22 Freq: Status: Active Protocol: Document 11/12/19 08:15 MB (Rec: 11/12/19 08:39 MB [id number]) Physical Therapy Assessment Rehab Potential Rehabilitation Potential Fair Evaluation Complexity Number of Personal Factors/Comorbidities 1-2 Number of Body Systems Impaired 3 Clinical Presentation at Evaluation Evolving Impairments Impairments Activity Tolerance,Balance, Edema,Functional Activities, Functional Mobility,Gait, Integument,Pain,Posture,ROM, Sensation,Soft Tissue Mobility ,Strength,Transfers Other Impairments Personal factors: trouble getting transportation, self- limiting activity, ? alcohol intake; body systems affected include integumentary, musculoskeletal, cardiac. Clinical presentation evolving Goals 8 Billet Inspector Goal (LTG) Pt will gait train 1000 ft with or without AD in 6 minutes to improve community ambulation by 01/13/2020. LTG Duration 8 weeks 7 Billet Inspector Goal (LTG) Pt will gait train 14 steps with right rail ascend and reciprocal gait to allow sleeping in regular bed by . LTG Duration 8 weeks 6 Skilled Nursing Goal (LTG) Pt will perform 5 reps sit to manufacturing technology analyst less than 13 sec without UE support to allow safe transfers by 01/13/2020. LTG Duration 8 weeks 5 Billet Inspector Goal (LTG) Pt will be able to lift left leg into bed without use of right leg or hand to improve I by 01/13/2020. LTG Duration 8 weeks 4 Skilled Nursing Goal (LTG) Pt will present with improved active left knee ROM to at least 10-100 deg to improve functional transfers by 2019. LTG Duration 8 weeks 3 Billet Inspector Goal (LTG) Pt will perform progressive HEP with I including flexibility, range, strengthening, balance and gait exercises by 01/13/2020. LTG Duration 8 weeks 2 Billet Inspector Goal (LTG) Pt will report an overall 75% improvement in left leg pain to allow return to normal activities by 01/13/2020. LTG Duration 8 weeks 1 Impairment LE functional index score 31/ 80 Skilled Nursing Goal (LTG) Pt will present with an improved LE functional index score to reflect no more than 20% impairment by 01/13/2020. LTG Duration 8 weeks Assessment Summary Assessment Addresesed goals better this date and will send to referring provider to sign off . Pt's gait is better but she con't with pain with gentle leg straightening with pillow support. Provided handouts for gentle LE ROM exercises. PT prognosis is fair to guarded given self-limiting behaviors and pain. Physical Therapy Plan Frequency and Duration Frequency of Treatment 2x/Week Duration of Treatment 8 weeks Plan of Care Start Date 11/12/19 Plan of Care End Date 01/13/20 Therapeutic Interventions Therapeutic Interventions Aquatic Therapy,Balance Training,Canalithic Repositioning,Gait Training, Home Exercise Program,Joint Mobilizations,Manual Therapy, Neuromuscular Re-education, Patient/Caregiver Education, Self-Care/Home Management, Sensory Integration,Soft Tissue Mobilization,Taping, Therapeutic Activities, Therapeutic Exercises Modalities Cold Pack/Ice Massage,Electric Stimulation,Hot Packs, Ultrasound Other Therapeutic Interventions LTT Other Referrals/Consults Referrals/Consults Recommended PCP to follow-up post injury, surgery, SNF stay and to address cardiac history per notes Next Visit Focus/Plan Next Note Type Treatment Note Next Visit Plan Progress HEP, consider Counterstrain
--- NOTE | 2019-11-12 10:25 | PT.OPPOC ---
Physical, Occupational & Speech Therapy At [facility] Current Diagnoses Other muscle spasm (11/12/19) Displaced intertrochanteric fracture of left femur, initial encounter for closed fracture (11/12/19) Visit Care Team Role Provider Type Bakari Hook MD Family Provider Non-Staff Primary Care Provider Specialty: Medical Address: [address] [place] [address], [phone] Email: ALBERTO Merino Attending Provider Non-Staff Referring Provider Specialty: Nursing Address: [address] [place] [address], [id number] Email: Plan Of Care PT-OP-T Assessment and Plan Start: 11/06/19 07:22 Freq: Status: Active Protocol: Document 11/12/19 08:15 MB (Rec: 11/12/19 08:39 MB [id number]) Physical Therapy Assessment Rehab Potential Rehabilitation Potential Fair Evaluation Complexity Number of Personal Factors/Comorbidities 1-2 Number of Body Systems Impaired 3 Clinical Presentation at Evaluation Evolving Impairments Impairments Activity Tolerance,Balance, Edema,Functional Activities, Functional Mobility,Gait, Integument,Pain,Posture,ROM, Sensation,Soft Tissue Mobility ,Strength,Transfers Other Impairments Personal factors: trouble getting transportation, self- limiting activity, ? alcohol intake; body systems affected include integumentary, musculoskeletal, cardiac. Clinical presentation evolving Goals 8 Skilled Nursing Goal (LTG) Pt will gait train 1000 ft with or without AD in 6 minutes to improve community ambulation by 01/13/2020. LTG Duration 8 weeks 7 Skilled Nursing Goal (LTG) Pt will gait train 14 steps with right rail ascend and reciprocal gait to allow sleeping in regular bed by . LTG Duration 8 weeks 6 Skilled Nursing Goal (LTG) Pt will perform 5 reps sit to administration internship less than 13 sec without UE support to allow safe transfers by 01/13/2020. LTG Duration 8 weeks 5 Skilled Nursing Goal (LTG) Pt will be able to lift left leg into bed without use of right leg or hand to improve I by 01/13/2020. LTG Duration 8 weeks 4 Studio Producer Goal (LTG) Pt will present with improved active left knee ROM to at least 10-100 deg to improve functional transfers by 2019. LTG Duration 8 weeks 3 Skilled Nursing Goal (LTG) Pt will perform progressive HEP with I including flexibility, range, strengthening, balance and gait exercises by 01/13/2020. LTG Duration 8 weeks 2 Skilled Nursing Goal (LTG) Pt will report an overall 75% improvement in left leg pain to allow return to normal activities by 01/13/2020. LTG Duration 8 weeks 1 Impairment LE functional index score 31/ 80 Studio Producer Goal (LTG) Pt will present with an improved LE functional index score to reflect no more than 20% impairment by 01/13/2020. LTG Duration 8 weeks Assessment Summary Assessment Addresesed goals better this date and will send to referring provider to sign off . Pt's gait is better but she con't with pain with gentle leg straightening with pillow support. Provided handouts for gentle LE ROM exercises. PT prognosis is fair to guarded given self-limiting behaviors and pain. Physical Therapy Plan Frequency and Duration Frequency of Treatment 2x/Week Duration of Treatment 8 weeks Plan of Care Start Date 11/12/19 Plan of Care End Date 01/13/20 Therapeutic Interventions Therapeutic Interventions Aquatic Therapy,Balance Training,Canalithic Repositioning,Gait Training, Home Exercise Program,Joint Mobilizations,Manual Therapy, Neuromuscular Re-education, Patient/Caregiver Education, Self-Care/Home Management, Sensory Integration,Soft Tissue Mobilization,Taping, Therapeutic Activities, Therapeutic Exercises Modalities Cold Pack/Ice Massage,Electric Stimulation,Hot Packs, Ultrasound Other Therapeutic Interventions LTT Other Referrals/Consults Referrals/Consults Recommended PCP to follow-up post injury, surgery, SNF stay and to address cardiac history per notes Next Visit Focus/Plan Next Note Type Treatment Note Next Visit Plan Progress HEP, consider Counterstrain Plan of Care Dates Plan of Care Start Date 11/12/19 Plan of Care End Date 01/13/20 Electronically Signed by: Cielo Yoder PT 11/12/19 3051 Please Sign and Return: I have reviewed this Plan of Care and certify that the skilled therapy services above are required to meet the patient?s needs. Physician Signature Date Printed Name and Credentials Clinical Instructor Signature Printed Name and Credentials
--- NOTE | 2019-11-14 13:52 | PT.OTN ---
Current Diagnoses Other muscle spasm (11/14/19) Displaced intertrochanteric fracture of left femur, initial encounter for closed fracture (11/14/19) Physical Therapy Treatment Note PT-OP-A Visit Information Start: 11/06/19 07:22 Freq: Status: Active Protocol: Document 11/14/19 13:01 MB (Rec: 11/14/19 13:51 MB [id number]) Out-Patient Physical Therapy Visit Information Visit Information Visit Type Treatment Note Visit Note Medicare, unlimited visits Visit Start Time 13:01 Visit Stop Time 13:45 Total Visit Minutes 44 Visit Number 3 Number of WORD PROCESSING OPERATOR Visits 0 Precautions Precautions Fall risk PT-OP-B Current Condition Start: 11/06/19 07:22 Freq: Status: Active Protocol: Document 11/06/19 09:45 MB (Rec: 11/06/19 11:23 MB [id number]) Current Condition History of Current Condition Onset Date 09/28/2019 Current Complaints Left anterior knee pain that moves to her left ankle, numbness History of Current Condition Pt tripped on her rug 09/28/2019 , landing on left knee and then left hip. She underwent ORIF at [facility] on 09/29. Her son, Shayne, and she report that there was a cardiac concern about a murmur but then they proceeded with surgery. Pt denies hip precautions and WB precautions . 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 After surgery, pt d/cd to SNF for 25 days. She just returned home on 10/27/2019 and has been less active since returning home. She lives alone, has 6 steps to enter with right rail ascend, has a RW, elevated commode and tub bench and was I immediately upon d/t home. She has had progressively worsening left leg pain, focused around the anterior knee, estevez and ankle with reports of numbness. Her pain reaches 10/10 and she went to the ED yesterday. US LLE was negative for DVT and positive for superficial saphenous thrombophlebitis. Pt denies falls since 09/28/2019 . She reports that icing, elevation, heat and ibuprofen help her pain. She has also performed gentle LE exercises that help her pain. PMH on SNF d/c note includes atherosclerotic heart disease (pt states she is not aware of this), hyperglycemia, hypothyroidism, anemia, ongoing smoking and alcohol intake, cardiac murmur, L BBB, hyperlipidemia Prior Treatments and Tests See above, recent SNF adm post -op and pt states that she could ascend and descend steps and get in and OOB I. Treatment Goals Patient/Caregiver Goals To decrease pain and improve mobility Prior Functional Status Baseline Function- ADL's Independent Baseline Function- Mobility Independent Baseline Function- Gait Mod I with RW Current Functional Impairments (Reported) Functional Limitations- ADL's Pt requires min A to get onto and off of plinth, guards her left leg with right foot Functional Limitations- Mobility/Gait Antalgic gait with decreased step-length and foot clearance , increased step-to gait, heavy UE support on RW Personal Factors Other Personal Factors That May Effect Inability to drive herself to Therapy/Recovery appointments, inconsistent help, ongoing smoking, ? how much alcohol intake (son, Shayne , suspects more that pt reports), ? non-caffeinated fluid intake, self-limiting mobility PT-OP-C Subjective Start: 11/06/19 07:22 Freq: Status: Active Protocol: Document 11/14/19 13:01 MB (Rec: 11/14/19 13:51 MB [id number]) OP-PT Subjective Patient Comments Patient Comments Pt states that the thing on the front of her anterior left pelvis is related to the burning pain. She as an US of the area next Monday. PT-OP-G Mobility & Gait Start: 11/06/19 07:22 Freq: Status: Active Protocol: Document 11/06/19 09:45 MB (Rec: 11/06/19 11:23 MB [id number]) OP Mobility Evaluation Bed Mobility Rolling Min A, support left leg Supine to and from Sit Min A, pt holds onto PT's arm OP Gait Assessment Comments Gait Comments See gait comments above PT-OP-K Range of Motion Start: 11/06/19 07:22 Freq: Status: Active Protocol: Document 11/06/19 09:45 MB (Rec: 11/06/19 14:58 MB [id number]) Knee Goniometric Range of Motion Knee ROM Limitations Comments Pt does not tolerate formal ROM testing, cannot reach full extension with left knee and asks for support. Pt presents with pain with active flexion to 30 deg and passive flexion 70 deg left knee. PT-OP-M Strength Start: 11/06/19 07:22 Freq: Status: Active Protocol: Document 11/06/19 09:45 MB (Rec: 11/06/19 14:58 MB [id number]) Hip Strength Hip Manual Muscle Testing Left Comments NT d/t pt fear of pain Right Flexion (L2) 4 Good Abduction 3+ Fair+ Knee Strength Knee Manual Muscle Testing Left Comments NT d/t fear of pain Right Flexion (S2) 4 Good Extension (L3) 5 Normal Ankle/Foot Strength Ankle and Foot Manual Muscle Testing Left Dorsiflexion (L4) 5 Normal Inversion 5 Normal Eversion (S1) 5 Normal Right Dorsiflexion (L4) 5 Normal Inversion 5 Normal Eversion (S1) 5 Normal Toe Strength Toe Manual Muscle Testing Left Great Toe Comments 4/5 Right Great Toe Comments 4/5 PT-OP-Q Treatments Start: 11/06/19 07:22 Freq: Status: Active Protocol: Document 11/14/19 13:01 MB (Rec: 11/14/19 13:51 MB [id number]) Manual Therapy Treatment Other Other Manual Treatments Pt agrees to Counterstrain to assess and treat fascial tension. Performed today d/t gentle positional release. PT treat stacks: standard lymphatic row PT-OP-T Assessment and Plan Start: 11/06/19 07:22 Freq: Status: Active Protocol: Document 11/14/19 13:01 MB (Rec: 11/14/19 13:51 MB [id number]) Physical Therapy Assessment Rehab Potential Rehabilitation Potential Fair Evaluation Complexity Number of Personal Factors/Comorbidities 1-2 Number of Body Systems Impaired 3 Clinical Presentation at Evaluation Evolving Impairments Impairments Activity Tolerance,Balance, Edema,Functional Activities, Functional Mobility,Gait, Integument,Pain,Posture,ROM, Sensation,Soft Tissue Mobility ,Strength,Transfers Other Impairments Personal factors: trouble getting transportation, self- limiting activity, ? alcohol intake; body systems affected include integumentary, musculoskeletal, cardiac. Clinical presentation evolving Goals 8 Communications Officer Goal (LTG) Pt will gait train 1000 ft with or without AD in 6 minutes to improve community ambulation by 01/13/2020. LTG Duration 8 weeks 7 Custodial Goal (LTG) Pt will gait train 14 steps with right rail ascend and reciprocal gait to allow sleeping in regular bed by . LTG Duration 8 weeks 6 Communications Officer Goal (LTG) Pt will perform 5 reps sit to care coordination manager less than 13 sec without UE support to allow safe transfers by 01/13/2020. LTG Duration 8 weeks 5 Custodial Goal (LTG) Pt will be able to lift left leg into bed without use of right leg or hand to improve I by 01/13/2020. LTG Duration 8 weeks 4 Communications Officer Goal (LTG) Pt will present with improved active left knee ROM to at least 10-100 deg to improve functional transfers by 2019. LTG Duration 8 weeks 3 Custodial Goal (LTG) Pt will perform progressive HEP with I including flexibility, range, strengthening, balance and gait exercises by 01/13/2020. LTG Duration 8 weeks 2 Communications Officer Goal (LTG) Pt will report an overall 75% improvement in left leg pain to allow return to normal activities by 01/13/2020. LTG Duration 8 weeks 1 Impairment LE functional index score 31/ 80 Communications Officer Goal (LTG) Pt will present with an improved LE functional index score to reflect no more than 20% impairment by 01/13/2020. LTG Duration 8 weeks Assessment Summary Assessment PT palpates bony area again and she appears to have changes near the AIIS area on the left. There is a lot of musculature and close vasculature in this area. Pt might benefit from spine being checked out given pain in left knee with hook lying, severity of complaints with lying flat, 7/10 medial left knee pain. Con't gentle work. Given pt age, smoking and overall presentation, will hold PT for two weeks and con' t treatment in November. Physical Therapy Plan Frequency and Duration Frequency of Treatment 2x/Week Duration of Treatment 8 weeks Plan of Care Start Date 11/12/19 Plan of Care End Date 01/13/20 Therapeutic Interventions Therapeutic Interventions Aquatic Therapy,Balance Training,Canalithic Repositioning,Gait Training, Home Exercise Program,Joint Mobilizations,Manual Therapy, Neuromuscular Re-education, Patient/Caregiver Education, Self-Care/Home Management, Sensory Integration,Soft Tissue Mobilization,Taping, Therapeutic Activities, Therapeutic Exercises Modalities Cold Pack/Ice Massage,Electric Stimulation,Hot Packs, Ultrasound Other Therapeutic Interventions LTT Other Referrals/Consults Referrals/Consults Recommended PCP to follow-up post injury, surgery, SNF stay and to address cardiac history per notes Next Visit Focus/Plan Next Note Type Treatment Note Next Visit Plan Progress HEP, consider further Counterstrain
--- NOTE | 2019-12-07 13:23 | PT-OP ANOTE ---
PT calls pt to check in. She does not answer and PT leaves message with work email address. PT also calls next of kin who is unavailable.
--- NOTE | 2019-12-21 17:06 | PT-OP ANOTE ---
PT attempts to call pt but receives message that it is not a working number. PT calls next of kin number and leaves message. PT communicates that we do not know yet when clinic will reopen, that clinic hours will be limited to begin with, that therapists and patients will wear masks and that the gym situation will allow for 6 feet between patients. PT communicates that pt/family can decide if she wants to con't with PT when the clinic opens pending her current functional status and I with HEP.
--- NOTE | 2020-01-03 09:28 | PT.OPDS ---
Current Diagnoses Other muscle spasm (11/14/19) Displaced intertrochanteric fracture of left femur, initial encounter for closed fracture (11/14/19) Visit Care Team Role Provider Type Bakari Hook MD Family Provider Non-Staff Primary Care Provider Specialty: Medical Address: [address] [place] [address], [id number] Email: ALBERTO Merino Attending Provider Non-Staff Referring Provider Specialty: Nursing [address]: [address] [place] [address], [phone] Email: Visit Number Visit Number 3 Discharge Summary PT-OP-B Current Condition Start: 11/06/19 07:22 Freq: Status: Active Protocol: Document 11/06/19 09:45 MB (Rec: 11/06/19 11:23 MB [id number]) Current Condition History of Current Condition Onset Date 09/28/2019 Current Complaints Left anterior knee pain that moves to her left ankle, numbness History of Current Condition Pt tripped on her rug 09/28/2019 , landing on left knee and then left hip. She underwent ORIF at [facility] on 09/29. Her son, Shayne, and she report that there was a cardiac concern about a murmur but then they proceeded with surgery. Pt denies hip precautions and WB precautions . 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 After surgery, pt d/cd to SNF for 25 days. She just returned home on 10/27/2019 and has been less active since returning home. She lives alone, has 6 steps to enter with right rail ascend, has a RW, elevated commode and tub bench and was I immediately upon d/t home. She has had progressively worsening left leg pain, focused around the anterior knee, estevez and ankle with reports of numbness. Her pain reaches 10/10 and she went to the ED yesterday. US LLE was negative for DVT and positive for superficial saphenous thrombophlebitis. Pt denies falls since 09/28/2019 . She reports that icing, elevation, heat and ibuprofen help her pain. She has also performed gentle LE exercises that help her pain. PMH on SNF d/c note includes atherosclerotic heart disease (pt states she is not aware of this), hyperglycemia, hypothyroidism, anemia, ongoing smoking and alcohol intake, cardiac murmur, L BBB, hyperlipidemia Prior Treatments and Tests See above, recent SNF adm post -op and pt states that she could ascend and descend steps and get in and OOB I. Treatment Goals Patient/Caregiver Goals To decrease pain and improve mobility Prior Functional Status Baseline Function- ADL's Independent Baseline Function- Mobility Independent Baseline Function- Gait Mod I with RW Current Functional Impairments (Reported) Functional Limitations- ADL's Pt requires min A to get onto and off of plinth, guards her left leg with right foot Functional Limitations- Mobility/Gait Antalgic gait with decreased step-length and foot clearance , increased step-to gait, heavy UE support on RW Personal Factors Other Personal Factors That May Effect Inability to drive herself to Therapy/Recovery appointments, inconsistent help, ongoing smoking, ? how much alcohol intake (son, Shayne , suspects more that pt reports), ? non-caffeinated fluid intake, self-limiting mobility PT-OP-C Subjective Start: 11/06/19 07:22 Freq: Status: Active Protocol: Document 11/14/19 13:01 MB (Rec: 11/14/19 13:51 MB [id number]) OP-PT Subjective Patient Comments Patient Comments Pt states that the thing on the front of her anterior left pelvis is related to the burning pain. She as an US of the area next Monday. PT-OP-G Mobility & Gait Start: 11/06/19 07:22 Freq: Status: Active Protocol: Document 11/06/19 09:45 MB (Rec: 11/06/19 11:23 MB [id number]) OP Mobility Evaluation Bed Mobility Rolling Min A, support left leg Supine to and from Sit Min A, pt holds onto PT's arm OP Gait Assessment Comments Gait Comments See gait comments above PT-OP-K Range of Motion Start: 11/06/19 07:22 Freq: Status: Active Protocol: Document 11/06/19 09:45 MB (Rec: 11/06/19 14:58 MB [id number]) Knee Goniometric Range of Motion Knee ROM Limitations Comments Pt does not tolerate formal ROM testing, cannot reach full extension with left knee and asks for support. Pt presents with pain with active flexion to 30 deg and passive flexion 70 deg left knee. PT-OP-M Strength Start: 11/06/19 07:22 Freq: Status: Active Protocol: Document 11/06/19 09:45 MB (Rec: 11/06/19 14:58 MB [id number]) Hip Strength Hip Manual Muscle Testing Left Comments NT d/t pt fear of pain Right Flexion (L2) 4 Good Abduction 3+ Fair+ Knee Strength Knee Manual Muscle Testing Left Comments NT d/t fear of pain Right Flexion (S2) 4 Good Extension (L3) 5 Normal Ankle/Foot Strength Ankle and Foot Manual Muscle Testing Left Dorsiflexion (L4) 5 Normal Inversion 5 Normal Eversion (S1) 5 Normal Right Dorsiflexion (L4) 5 Normal Inversion 5 Normal Eversion (S1) 5 Normal Toe Strength Toe Manual Muscle Testing Left Great Toe Comments 4/5 Right Great Toe Comments 4/5 PT-OP-T Assessment and Plan Start: 11/06/19 07:22 Freq: Status: Active Protocol: Document 01/03/20 09:28 MB (Rec: 01/03/20 09:28 MB [id number]) Physical Therapy Plan Discharge Physical Therapy Discharge Comments Pt .
== END 2020-01-06 09:49 ==
LOC: PHYS 13:00
PROVIDERS: Family Provider Family Medicine; PCP Family Medicine; Referring Provider Nurse Practitioner; Visit Provider Nurse Practitioner
DX: S72.142A Displaced intertrochanteric fracture of left femur, initial encounter for closed fracture (principal); M62.838 Other muscle spasm
CPT/HCPCS: 97110; 97140; 97162; 97535